=== PATIENT | female | born 1970 | race Caucasian/White ===

== ENCOUNTER 2024-10-08 17:18 | Emergency (ER) | payer OTHER ==
[~2024-10-08] VITALS: Ht 157.5 cm; Wt 69.9 kg
[~2024-10-08 17:18] MED LIST: CYCLOBENZAPRINE10 MG PO; IBUPROFEN800 MG PO; NAPROXEN500 MG PO
[2024-10-08 17:53] LABS: BILIRUBIN, URINE NEGATIVE (negative); BLOOD/HGB, URINE NEGATIVE (Negative); KETONE, URINE NEGATIVE (Negative); LEUK ESTERASE, URINE NEGATIVE (negative); NITRITE, URINE NEGATIVE (negative); PH, URINE 5.5 (5-7)
[2024-10-08 18:13] LABS: BASOPHILS 0.5 % (0-2); EOSINOPHILS 1.4 % (0-6); HEMATOCRIT 42.1 % (35.0-50.0); HEMOGLOBIN 14.4 g/dL (12.0-18.0); LYMPHOCYTES 31.4 % (24-44); MCH 29.9 (27-36); MCHC 34.2 g/dl (30-36); MCV 87.5 fl (81-99); MONOCYTES 8.7 % (0-12); PLATELET COUNT 304 K/uL (140-440); RBC 4.81 M/ul (4.3-5.7); RDW 12.5 (10.5-15.0)
[2024-10-08 18:39] LABS: ALBUMIN 3.2 g/dL (3.4-5.0); ALBUMIN/GLOBULIN RATIO 0.8 (1.1-2.4); ANION GAP 13.7 (7-21); BILIRUBIN, TOTAL 0.3 ng/dL (0.2-1.0); BUN/CREATININE RATIO 9.41 (6.0-28.6); CALCIUM 8.8 mg/dL (8.5-10.1); CREATININE, SERUM 0.85 mg/dL (0.55-1.02); POTASSIUM 3.7 mmol/L (3.5-5.1); PROTEIN, TOTAL 7.2 g/dL (6.4-8.2)
[2024-10-08] MEDS ORDERED: K-TAB ER20 MEQ PO (19:41)
[2024-10-08] MEDS ORDERED: METFORMIN HCL500 MG PO (19:41)
[2024-10-08] MEDS ORDERED: LASIX20 MG PO (19:41)
[2024-10-08 20:03] VITALS: BP 114/67
== END 2024-10-08 20:04 | disposition home or self-care (01) ==
LOC: ED 17:18
PROVIDERS: Emergency Medicine
DX: R60.0 Localized edema (principal); E11.65 Type 2 diabetes mellitus with hyperglycemia; F17.200 Nicotine dependence, unspecified, uncomplicated; Z79.899 Other long term (current) drug therapy
CPT/HCPCS: 36415; 80053; 81003; 83880; 85025; 99283

== ENCOUNTER 2024-11-26 04:02 | Emergency (ER) | payer OTHER ==
[~2024-11-26] VITALS: Ht 157.5 cm; Wt 69.9 kg
[~2024-11-26 04:02] MED LIST changes: +K-TAB ER20 MEQ PO; +LASIX20 MG PO; +METFORMIN HCL500 MG PO
[2024-11-26] MEDS ORDERED: DOXYCYCLINE HYCLATE 100 MG HOME.PACK PO ONE (04:15)
[2024-11-26] MEDS ORDERED: INSULIN GL100 UNIT/2 SQ (04:15)
[2024-11-26] MEDS ORDERED: FREESTYLE LITE1 EAC1 MISC (04:15)
[2024-11-26] MEDS ORDERED: NANO 2ND GEN P1 EACH MC (04:15)
[2024-11-26] MEDS ORDERED: METFORMIN HCL1000 MG PO (04:15)
[2024-11-26] MEDS ORDERED: ALOGLIPTIN25 MG PO (04:16)
[2024-11-26 04:40] VITALS: BP 149/84
== END 2024-11-26 04:40 | disposition home or self-care (01) ==
LOC: ED 04:02
DX: L03.115 Cellulitis of right lower limb (principal); E11.9 Type 2 diabetes mellitus without complications; F17.200 Nicotine dependence, unspecified, uncomplicated; Z79.84 Long term (current) use of oral hypoglycemic drugs; Z79.4 Long term (current) use of insulin; Z79.899 Other long term (current) drug therapy
CPT/HCPCS: 99283; A9270